=== PATIENT | male | born 1965 | race Caucasian/White ===

== ENCOUNTER → 2023-01-31 | Outpatient (CLI) | payer OTHER ==
[2023-01-31 14:49] LABS: URINE WBC 0 /hpf (0-3)
[2023-01-31 15:14] LABS: URINE COLOR LT YELLOW
[2023-01-31 15:15] LABS: URINE APPEARANCE CLEAR; URINE BILIRUBIN NEGATIVE (NEGATIVE); URINE BLOOD NEGATIVE (NEGATIVE); URINE GLUCOSE NEGATIVE (NEGATIVE); URINE KETONE NEGATIVE (NEGATIVE); URINE LEUKOCYTE ESTERASE NEGATIVE (NEGATIVE); URINE NITRATE NEGATIVE (NEGATIVE); URINE PROTEIN(semi-quant) TRACE (NEGATIVE); URINE UROBILINOGEN NORMAL (NORMAL)
== END ==
LOC: LAB 14:24
PROVIDERS: Family Medicine
DX: Z00.00 Encounter for general adult medical examination without abnormal findings (principal); Z13.1 Encounter for screening for diabetes mellitus; Z12.5 Encounter for screening for malignant neoplasm of prostate; E78.00 Pure hypercholesterolemia, unspecified; R39.12 Poor urinary stream; R30.0 Dysuria; Z87.898 Personal history of other specified conditions; Z80.9 Family history of malignant neoplasm, unspecified

== ENCOUNTER → 2024-07-11 | Outpatient (CLI) | payer MEDICAID | LOC: LAB 16:17 | DX: Z12.5 Encounter for screening for malignant neoplasm of prostate (principal); E78.41 Elevated Lipoprotein(a) ==